=== PATIENT | male | born 1970 | race Caucasian/White ===

== ENCOUNTER 2017-07-22 07:48 | Emergency (ER) | payer SELFPAY ==
--- NOTE | 2017-07-22 09:31 | RAD ---
LUMBAR SPINE 3 VIEWS: HISTORY: Low back pain with bilateral leg radiculopathy. FINDINGS: There are 5 lumbar-type vertebrae. Pedicles are intact. Minimal physiologic wedging of L1 is appare nt. Disk space narrowing and minimal degenerative retrolisthesis are present at the L1-2 level. The re is minimal degenerative retrolisthesis of the L5-S1 level. Prominent osteophytosis is present thr oughout the facets and at the lower 2 levels vertebral bodies. Calcification overlies the arterial s tructures. IMPRESSION: 1. Prominent lumbar spondylosis. No evidence of acute compression fracture. 2. Atherosclerosis. POS: [facility]
[2017-07-22] MEDS ORDERED: Morphine 4 MG/ML VIAL ONE (09:36)
== END 2017-07-22 10:43 | disposition home or self-care (01) ==
LOC: ERS 07:48
DX: M54.16 Radiculopathy, lumbar region (principal)
CPT/HCPCS: 72100; 96372; J2270

== ENCOUNTER 2018-04-15 15:37 | Emergency (ER) | payer SELFPAY ==
[2018-04-15] MEDS ORDERED: Fluorescein Opthalmic Strip ONE (15:58)
[2018-04-15] MEDS ORDERED: Proparacaine 0.5% Opth 15 ML BOT ONE (15:58)
== END 2018-04-15 16:33 | disposition home or self-care (01) ==
LOC: ERS 15:37
DX: H57.12 Ocular pain, left eye (principal)
CPT/HCPCS: 99283

== ENCOUNTER 2019-08-10 22:26 | Emergency (ER) | payer OTHER, SELFPAY ==
--- NOTE | 2019-08-11 12:04 | RAD ---
CHEST 1 VIEW: INDICATION: Emergency examination. COMPARISON: Prior exam dated 05/03/2004. FINDINGS: No consolidation is grossly evident. Costophrenic angles are excluded. No definite pneumothorax is evident. No acute osseous abnormality is noted. IMPRESSION: No definite acute cardiopulmonary abnormality. POS: [facility]
--- NOTE | 2019-08-15 12:49 | EKG ---
Test Reason : Blood Pressure : / mmHG Vent. Rate : 067 BPM Atrial Rate : 067 BPM P-R Int : 162 ms QRS Dur : 088 ms QT Int : 394 ms P-R-T Axes : 062 019 020 degrees QTc Int : 416 ms Normal sinus rhythm Normal ECG Confirmed by MARISA ANSARI DO ([id number]), pictures editor RAYSHAWN TAYLOR ([id number]) on 08/15/2019 12:49:32 PM Referred By: Confirmed By:MARISA ANSARI DO
== END 2019-08-11 01:24 ==
LOC: ERS 22:26
DX: F41.9 Anxiety disorder, unspecified (principal); I10 Essential (primary) hypertension
CPT/HCPCS: 71045; 93005

== ENCOUNTER 2019-09-10 21:40 | Emergency (ER) | payer SELFPAY ==
[~2019-09-10 21:40] MED LIST: Iopamidol-370 76% 500 ML 1 ML ONE
[2019-09-10 22:08] LABS: Mean Corpuscular HGB CONC 34.2 g/dL (32.0-36.0); Mean Corpuscular Hemoglobin 32.6 pg (27.0-31.0); Mean Corpuscular Volume 95.4 fL (78.0-98.0); Mean Platelet Volume 8.9 fL (7.4-10.4); Platelet Count 135 thou/uL (130-400); RBC Distribution Width 11.4 % (11.5-14.5); Red Blood Cell (RBC) Count 5.21 mill/uL (4.70-6.10)
[2019-09-10 22:14] LABS: PTT 24.7 sec (22.9-36.1); Prothrombin Time 12.8 sec (12.0-14.7)
[2019-09-10 22:24] LABS: Band 5 % (5-11); Eosinophils 1 % (0-10); Lymphocytes 18 % (21-51); MDiff Complete? YES; Monocytes 5 % (0-10); Neutrophil 71 % (42-75); Platelet Morphology Comment Appears Adequate; RBC Morphology Normal
[2019-09-10 23:18] LABS: ALT (SGPT) 51 U/L (8-55); AST (SGOT) 30 U/L (5-34); Albumin 4.1 g/dL (3.5-5.0); Alcohol 92 mg/dL (Less than 10); Alkaline Phosphatase 54 U/L (40-110); Anion Gap 13 mmol/L (10-20); BUN (Urea Nitrogen) 10 mg/dL (8.4-25.7); Bilirubin, Total 0.6 mg/dL (0.2-1.2); Calc. Creatinine Clearance 0 mL/min (70-130); Calcium 8.5 mg/dL (7.8-10.44); Carbon Dioxide 23 mmol/L (22-29); Chloride 106 mmol/L (98-107); Estimated GFR-MDRD 79; Globulin 3.1 g/dL (2.4-3.5); Glucose 86 mg/dL (70-105); Protein, Total 7.2 g/dL (6.0-8.3); Sodium 138 mmol/L (136-145)
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
== END 2019-09-11 01:47 | disposition home or self-care (01) ==
LOC: ERS 21:40
DX: S16.1XXA Strain of muscle, fascia and tendon at neck level, initial encounter (principal); S80.212A Abrasion, left knee, initial encounter; S80.211A Abrasion, right knee, initial encounter; S20.311A Abrasion of right front wall of thorax, initial encounter; F10.129 Alcohol abuse with intoxication, unspecified; R47.81 Slurred speech; Y90.4 Blood alcohol level of 80-99 mg/100 ml; V89.2XXA Person injured in unspecified motor-vehicle accident, traffic, initial encounter
CPT/HCPCS: 36415; 70450; 71260; 72125; 74177; 80053; 80307; 85025; 85610; 85730; 86850; 86900; 86901; G0390; Q9967

== ENCOUNTER 2019-09-17 13:49 | Emergency (ER) | payer SELFPAY ==
[2019-09-17] MEDS ORDERED: Ondansetron PF 4 MG/2 ML Vial ONE (13:57)
[2019-09-17] MEDS ORDERED: Fentanyl 100 MCG/2 ML VIAL ONE (13:57)
[2019-09-17 14:18] LABS: #Basophils 0.1 thou/uL (0.0-0.2); #Eosinphils 0.1 thou/uL (0.0-0.7); #Lymphocytes 1.8 thou/uL (1.20-3.40); #Monocytes 0.3 thou/uL (0.11-0.59); #Neutrophils 5.7 thou/uL (1.40-6.50); %Basophils 1.2 % (0.0-1.0); %Eosinophils 0.8 % (0.0-10.0); %Lymphocytes 22.3 % (21.0-51.0); %Monocytes 3.6 % (0.0-10.0); %Neutrophils 72.1 % (42.0-75.0); Hemoglobin 15.2 g/dL (14.0-18.0); Mean Corpuscular HGB CONC 35.2 g/dL (32.0-36.0); Mean Corpuscular Hemoglobin 32.8 pg (27.0-31.0); Mean Corpuscular Volume 93.1 fL (78.0-98.0); Mean Platelet Volume 6.9 fL (7.4-10.4); Platelet Count 272 thou/uL (130-400); RBC Distribution Width 11.4 % (11.5-14.5); Red Blood Cell (RBC) Count 4.63 mill/uL (4.70-6.10); White Blood Cell (WBC) Count 7.9 thou/uL (4.8-10.8)
--- NOTE | 2019-09-17 14:22 | RAD ---
EXAM: 4 views of the left knee HISTORY: Knee pain COMPARISON: None FINDINGS: No knee effusion is seen. There is no evidence of acute fracture or dislocation. No signifi cant degenerative changes are seen. No soft tissue swelling is present. IMPRESSION: No evidence of acute osseous abnormality.
[2019-09-17 14:23] LABS: PTT 29.3 sec (22.9-36.1); Prothrombin Time 13.6 sec (12.0-14.7)
--- NOTE | 2019-09-17 14:30 | CT ---
CT Cervical Spine WO Con Indication: Pain/Injury COMPARISON: September 10, 2019 FINDINGS: Fracture: None. Spinal alignment: No acute malalignment. Craniocervical junction: Within normal limits. Vertebral body heights: Maintained. Cervical spine degenerative change: There is moderate to severe spondylosis of the cervical spine willa t appears stable from the comparison. Lung apices: Emphysematous change is stable. IMPRESSION: No acute osseous abnormality. Findings discussed with Dr. Hernandez at 2:28 PM on 09/17/2019.
[2019-09-17 14:37] LABS: ALT (SGPT) 31 U/L (8-55); AST (SGOT) 27 U/L (5-34); Albumin 4.5 g/dL (3.5-5.0); Alkaline Phosphatase 59 U/L (40-110); Anion Gap 14 mmol/L (10-20); BUN (Urea Nitrogen) 8 mg/dL (8.4-25.7); Bilirubin, Total 0.6 mg/dL (0.2-1.2); Calc. Creatinine Clearance 0 mL/min (70-130); Calcium 9.6 mg/dL (7.8-10.44); Carbon Dioxide 27 mmol/L (22-29); Chloride 104 mmol/L (98-107); Estimated GFR-MDRD 71; Globulin 3.3 g/dL (2.4-3.5); Glucose 120 mg/dL (70-105); Potassium 3.8 mmol/L (3.5-5.1); Protein, Total 7.8 g/dL (6.0-8.3); Sodium 141 mmol/L (136-145)
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
== END 2019-09-17 15:17 | disposition home or self-care (01) ==
LOC: ERS 13:49
DX: S20.229A Contusion of unspecified back wall of thorax, initial encounter (principal); S80.212A Abrasion, left knee, initial encounter; F43.10 Post-traumatic stress disorder, unspecified; I10 Essential (primary) hypertension; V29.40XA Motorcycle driver injured in collision with unspecified motor vehicles in traffic accident, initial encounter
CPT/HCPCS: 36415; 70450; 71260; 72125; 74177; 80053; 85025; 85610; 85730; 96374; 96375; G0390; J2405; J3010; Q9967

== ENCOUNTER 2019-09-24 13:48 | Emergency (ER) | payer SELFPAY ==
[2019-09-24 14:59] LABS: Bilirubin Negative (Negative); Blood, Urine Negative (Negative); Clarity Clear (Clear); Glucose, Urine (Dipstick) Normal (Negative); Leukocyte Negative Leu/uL (Negative); Nitrite Negative (Negative); Protein, Urine (Dipstick) Negative (Neg-Trace); Urobilinogen Normal mg/dL (Less than 2)
--- NOTE | 2019-09-24 15:08 | RAD ---
Exam:4 views left knee HISTORY: Pain. COMPARISON: 09/07/2019 FINDINGS: Preserved joint spaces. No fracture or malalignment. No joint effusion. IMPRESSION: No fracture. No significant interval change.
[2019-09-24 15:09] LABS: Amphetamine Not Detected (NotDetected); Barbiturates Screen Not Detected (NotDetected); Benzodiazepine Screen Not Detected (NotDetected); Cocaine Metabolite Screen Not Detected (NotDetected); Medtox Control Line Valid? VALID (VALID); Medtox Reader # READER 1; Methadone Not Detected (NotDetected); Methamphetamine Not Detected (NotDetected); Opiate Screen Not Detected (NotDetected); Oxycodone Screen Not Detected (NotDetected); Phencyclidine (PCP) Not Detected (NotDetected); THC/Cannabinoid Screen Not Detected (NotDetected); Tricyclic Screen Not Detected (NotDetected)
[2019-09-24 15:09] LABS: #Basophils 0.1 thou/uL (0.0-0.2); #Eosinphils 0.1 thou/uL (0.0-0.7); #Monocytes 0.3 thou/uL (0.11-0.59); #Neutrophils 5.2 thou/uL (1.40-6.50); %Basophils 0.9 % (0.0-1.0); %Eosinophils 0.9 % (0.0-10.0); %Lymphocytes 25.7 % (21.0-51.0); %Neutrophils 68.4 % (42.0-75.0); Hemoglobin 15.3 g/dL (14.0-18.0); Mean Corpuscular HGB CONC 34.1 g/dL (32.0-36.0); Mean Corpuscular Hemoglobin 32.1 pg (27.0-31.0); Mean Corpuscular Volume 94.1 fL (78.0-98.0); Mean Platelet Volume 6.5 fL (7.4-10.4); Platelet Count 296 thou/uL (130-400); RBC Distribution Width 12.2 % (11.5-14.5); Red Blood Cell (RBC) Count 4.77 mill/uL (4.70-6.10); White Blood Cell (WBC) Count 7.6 thou/uL (4.8-10.8)
[2019-09-24] MEDS ORDERED: Haloperidol Lactate 5 MG/ML VIAL ONE (15:25)
[2019-09-24 15:35] LABS: ALT (SGPT) 34 U/L (8-55); AST (SGOT) 28 U/L (5-34); Acetaminophen Less than 6.0 mcg/mL (10.0-30.0); Albumin 4.4 g/dL (3.5-5.0); Alcohol 347 mg/dL (Less than 10); Alkaline Phosphatase 65 U/L (40-110); Anion Gap 15 mmol/L (10-20); BUN (Urea Nitrogen) 9 mg/dL (8.4-25.7); Bilirubin, Total 0.3 mg/dL (0.2-1.2); CK (CPK) 125 U/L (30-200); Calc. Creatinine Clearance 0 mL/min (70-130); Calcium 9.3 mg/dL (7.8-10.44); Carbon Dioxide 26 mmol/L (22-29); Chloride 111 mmol/L (98-107); Estimated GFR-MDRD 87; Globulin 3.4 g/dL (2.4-3.5); Glucose 108 mg/dL (70-105); Potassium 3.7 mmol/L (3.5-5.1); Protein, Total 7.8 g/dL (6.0-8.3); Salicylate Less than 8.0 mg/dL (15.0-30.0); Sodium 148 mmol/L (136-145)
[2019-09-24] MEDS ORDERED: Ziprasidone 20 MG VIAL ONE (16:10)
== END 2019-09-25 05:03 | disposition home or self-care (01) ==
LOC: ERS 13:48
DX: S80.212A Abrasion, left knee, initial encounter (principal); F10.129 Alcohol abuse with intoxication, unspecified; F32.9 Major depressive disorder, single episode, unspecified; I10 Essential (primary) hypertension; F43.10 Post-traumatic stress disorder, unspecified; Z79.899 Other long term (current) drug therapy; V49.9XXA Car occupant (driver) (passenger) injured in unspecified traffic accident, initial encounter
CPT/HCPCS: 36415; 80053; 80306; 80307; 81003; 82550; 84443; 85025; 93005; 94760; 96372; J1630; J3486

== ENCOUNTER 2020-03-20 17:03 | Emergency (ER) | payer SELFPAY ==
[2020-03-20 17:36] LABS: #Basophils 0.1 thou/uL (0.0-0.2); #Eosinphils 0.4 thou/uL (0.0-0.7); #Lymphocytes 2.5 thou/uL (1.20-3.40); #Monocytes 0.5 thou/uL (0.11-0.59); #Neutrophils 6.5 thou/uL (1.40-6.50); %Basophils 0.9 % (0.0-1.0); %Lymphocytes 24.7 % (21.0-51.0); %Monocytes 5.4 % (0.0-10.0); Hemoglobin 16.5 g/dL (14.0-18.0); Mean Corpuscular HGB CONC 34.2 g/dL (32.0-36.0); Mean Corpuscular Hemoglobin 32.2 pg (27.0-31.0); Mean Corpuscular Volume 94.2 fL (78.0-98.0); Mean Platelet Volume 7.2 fL (7.4-10.4); Platelet Count 300 thou/uL (130-400); RBC Distribution Width 11.8 % (11.5-14.5); Red Blood Cell (RBC) Count 5.11 mill/uL (4.70-6.10)
[2020-03-20] MEDS ORDERED: Morphine 4 MG/ML VIAL ONE (17:38)
[2020-03-20 17:56] LABS: ALT (SGPT) 50 U/L (8-55); AST (SGOT) 29 U/L (5-34); Albumin 4.3 g/dL (3.5-5.0); Alkaline Phosphatase 56 U/L (40-110); Anion Gap 14 mmol/L (10-20); BUN (Urea Nitrogen) 14 mg/dL (8.4-25.7); Bilirubin, Total 0.5 mg/dL (0.2-1.2); Calc. Creatinine Clearance 0 mL/min (70-130); Calcium 9.2 mg/dL (7.8-10.44); Carbon Dioxide 25 mmol/L (22-29); Chloride 102 mmol/L (98-107); Globulin 3.3 g/dL (2.4-3.5); Glucose 91 mg/dL (70-105); Potassium 4.7 mmol/L (3.5-5.1); Protein, Total 7.6 g/dL (6.0-8.3); Sodium 136 mmol/L (136-145)
--- NOTE | 2020-03-20 19:24 | CT ---
CT ABDOMEN AND PELVIS WITH CONTRAST: History: Inguinal hernia. Increasing pain. Comparison: August 2019 FINDINGS: Mild scarring lung bases. No pericardial effusion. Hepatic hypodensities are similar. Portal veins are patent. The spleen and pancreas are unremarkable. Right inferior renal hypodensity has increased over the yea rs from 2015 and measures over fluid attenuation. Normal proximal small bowel rotation. Prior right inguinal hernia repair. No dilated large or small bowel. The appendix is visualized and is normal. Mildly dilated abdominal e ctasia measuring up to 2.8 cm in size. No lobar inflammation. No retroperitoneal or periaortic adenopathy. Small sac containing umbilical hernia. High grade facet arthrosis of the lumbar spine. 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 3 mm L5-S1 retrolisthe sis, severe L4-5 and L5-S1 neural foraminal narrowing. IMPRESSION: 1. Prior right inguinal hernia repair. 2. No acute inflammatory process in the abdomen or pelvis. 3. Normal appendix. 4. Hypodensity inferior pole left kidney, slowly growing over a few years, slightly increased de nsity relative to a cyst. Non-emergent follow up renal protocol MRI in 6 months recommended. 5. Mild infrarenal abdominal aorta ectasia measuring up to 2.8 cm in size. 6. Diverticular disease in the sigmoid colon without active apparent inflammation. POS: HOME
== END 2020-03-20 20:47 | disposition home or self-care (01) ==
LOC: ERS 17:03
DX: K40.90 Unilateral inguinal hernia, without obstruction or gangrene, not specified as recurrent (principal); I10 Essential (primary) hypertension
CPT/HCPCS: 36415; 74177; 80053; 83605; 85025; 96374; J2270; Q9967

== ENCOUNTER 2020-06-10 15:20 | Outpatient (CLI) | payer OTHER, SELFPAY ==
[2020-06-10 16:39] LABS: #Eosinphils 0.2 10x3/uL (0.0-0.5); #Monocytes 0.6 10x3/uL (0.0-1.1); #Neutrophils 5.3 10x3/uL (1.5-8.4); %Basophils 0.3 % (0.0-2.0); %Eosinophils 2.7 % (0.0-6.0); %Lymphocytes 31.8 % (18.0-47.0); %Monocytes 6.5 % (0.0-10.0); %Neutrophils 58.6 % (40.0-75.0); Mean Corpuscular HGB CONC 33.5 g/dL (32.0-36.0); Mean Corpuscular Hemoglobin 31.5 pg (27.0-33.0); Mean Corpuscular Volume 94.1 fl (81.2-95.1); Mean Platelet Volume 9.7 fl (7.4-10.4); Platelet Count 286 10x3/uL (150-450); RBC Distribution Width 12.4 % (11.5-14.5); Red Blood Cell (RBC) Count 5.08 10x6/uL (4.32-5.72)
[2020-06-10 17:13] LABS: Anion Gap 13 mmol/L (10-20); BUN (Urea Nitrogen) 15 mg/dL (8.4-25.7); Calc. Creatinine Clearance 0 mL/min (70-130); Calcium 9.9 mg/dL (7.8-10.44); Carbon Dioxide 29 mmol/L (22-29); Chloride 103 mmol/L (98-107); Glucose 84 mg/dL (70-105); Potassium 4.6 mmol/L (3.5-5.1); Sodium 140 mmol/L (136-145)
[2020-06-11 01:49] LABS: SARS-CoV-2 PCR by NAA Not Detected (NotDetected)
== END 2020-06-10 15:21 | disposition home or self-care (01) ==
LOC: LABBT 15:20
PROVIDERS: ATTEND Specialist
DX: Z01.812 Encounter for preprocedural laboratory examination (principal); Z20.822 Contact with and (suspected) exposure to COVID-19; K40.90 Unilateral inguinal hernia, without obstruction or gangrene, not specified as recurrent
CPT/HCPCS: 80048; 85025; 87635; U0003; U0005

== ENCOUNTER 2020-06-14 06:03 | Day surgery (SDC) | payer OTHER ==
[2020-06-10 13:13] VITALS: BMI 30.9
[2020-06-14] MEDS ORDERED: Ketorolac Tromethamine 30 MG/ML VIAL ONE (06:08)
[2020-06-14] MEDS ORDERED: Acetaminophen 500 MG TAB ONE (06:08)
[2020-06-14] MEDS ORDERED: Dexmedetomidine 200 MCG/2 ML VIAL ONE (06:17)
[2020-06-14] MEDS ORDERED: Fentanyl 100 MCG/2 ML VIAL ONE ×2 (06:17→09:40)
[2020-06-14] MEDS ORDERED: Bupivacaine 0.25% HCL 30 ML VIAL ONE (07:03)
[2020-06-14] MEDS ORDERED: Lidocaine 1% w/Epinephrine 1:100K 20 ML VIAL ONE (07:03)
[2020-06-14] MEDS ORDERED: Midazolam HCl 2 mg/2 ml Vial ONE (07:22)
[2020-06-14] MEDS ORDERED: Lidocaine 1% PF 5 ML VIAL ONE (07:37)
[2020-06-14] MEDS ORDERED: Ondansetron PF 4 MG/2 ML Vial ONE (07:37)
[2020-06-14] MEDS ORDERED: Rocuronium Bromide 10 MG/ML (10ML VIAL) ONE (07:37)
[2020-06-14] MEDS ORDERED: PROPOFOL 200 MG/20 ML VIAL ONE (07:37)
[2020-06-14] MEDS ORDERED: PHENYLEPHRINE-NS 100 MCG/ML 10 ML SYRINGE ONE (07:37)
[2020-06-14] MEDS ORDERED: Glycopyrrolate 0.2 MG/ML 5 ML SYRINGE ONE (07:37)
[2020-06-14] MEDS ORDERED: ePHEDrine 50 MG/ML VIAL ONE (07:37)
[2020-06-14] MEDS ORDERED: Dexamethasone 20 MG/5 ML VIAL ONE (07:37)
[2020-06-14] MEDS ORDERED: Promethazine HCl 25 MG/ML VIAL IM PRN (08:44)
[2020-06-14] MEDS ORDERED: Promethazine HCl 25 MG/ML VIAL SLOW IVP PRN (08:44)
[2020-06-14] MEDS ORDERED: Ondansetron HCl/PF 4 MG/2 ML Vial IVP PRN (08:44)
[2020-06-14] MEDS ORDERED: Meperidine HCl/PF 25 MG/ML VIAL ONE (09:51)
[2020-06-14] MEDS ORDERED: HYDROcodone/Acetaminophen 5/325 mg Tablet ONE (10:25)
== END 2020-06-14 11:30 | disposition home or self-care (01) ==
LOC: SDC 06:03
PROVIDERS: ATTEND Specialist
PROC: 0YU54JZ Supplement Right Inguinal Region with Synthetic Substitute, Percutaneous Endoscopic Approach (ICD-10-PCS; principal; 2020-06-14)
PROC: 0WQF4ZZ Repair Abdominal Wall, Percutaneous Endoscopic Approach (ICD-10-PCS; principal; 2020-06-14)
DX: K40.90 Unilateral inguinal hernia, without obstruction or gangrene, not specified as recurrent (principal); K42.9 Umbilical hernia without obstruction or gangrene; F41.9 Anxiety disorder, unspecified
CPT/HCPCS: C1781; J0690; J1100; J1885; J2175; J2250; J2405; J2704; J3010; J3490; S0020